=== PATIENT | male | born 1995 | race Caucasian/White ===

== ENCOUNTER 2018-07-20 17:50 | Emergency (ER) | payer OTHER ==
[2018-07-20] MEDS: ALBUTEROL SULFATE 2.5 MG/0.5 ML INH NEB SOLN INH (18:35)
[2018-07-20] MEDS: DOXYCYCLINE HYCLATE 100 MG TAB PO (19:15)
[2018-07-20] MEDS: BENZONATATE 100 MG CAP PO (19:15)
[2018-07-20] MEDS: guaiFENesin ER 600 MG TAB PO (19:15)
== END 2018-07-20 19:26 | disposition home or self-care (01) ==
LOC: M ED 17:50
DX: J20.9 Acute bronchitis, unspecified (principal); J98.01 Acute bronchospasm; J45.909 Unspecified asthma, uncomplicated; Z72.0 Tobacco use; Z79.899 Other long term (current) drug therapy
CPT/HCPCS: 71046

== ENCOUNTER 2018-07-22 16:54 | Emergency (ER) | payer OTHER | END 2018-07-22 17:36 | disposition home or self-care (01) | LOC: M ED 16:54 | DX: K08.89 Other specified disorders of teeth and supporting structures (principal); K08.409 Partial loss of teeth, unspecified cause, unspecified class; Z98.890 Other specified postprocedural states; Z79.899 Other long term (current) drug therapy | CPT/HCPCS: 99282 ==

== ENCOUNTER 2018-07-30 11:02 | Emergency (ER) | payer OTHER ==
[2018-07-30] MEDS: NORCO, ANEXSIA 5/325MG TABLET (HYDROcodone/ACETAMINOPHEN) PO (12:45)
== END 2018-07-30 15:15 | disposition home or self-care (01) ==
LOC: M ED 11:02
DX: M54.9 Dorsalgia, unspecified (principal); V43.52XA Car driver injured in collision with other type car in traffic accident, initial encounter; J45.909 Unspecified asthma, uncomplicated; K44.9 Diaphragmatic hernia without obstruction or gangrene; K25.9 Gastric ulcer, unspecified as acute or chronic, without hemorrhage or perforation; F17.210 Nicotine dependence, cigarettes, uncomplicated; Z79.2 Long term (current) use of antibiotics
CPT/HCPCS: 72128

== ENCOUNTER 2018-10-11 11:54 | Emergency (ER) | payer OTHER | END 2018-10-11 13:02 | disposition left against medical advice (07) | LOC: M ED 11:54 | DX: Z53.29 Procedure and treatment not carried out because of patient's decision for other reasons (principal); Z53.21 Procedure and treatment not carried out due to patient leaving prior to being seen by health care provider (principal) ==

== ENCOUNTER 2018-12-22 10:34 | Emergency (ER) | payer OTHER ==
[~2018-12-22] VITALS: Ht 172.7 cm; Wt 72.7 kg
[~2018-12-22 10:34] MED LIST: ACET1TAB55 PO; BENZ200C70 PO; CYCL5TAB PO; DOXY100C37 PO; MOBI4TAB PO; MUCI600T37 PO; VENTAER INH
[2018-12-22] MEDS ORDERED: NORCO, ANEXSIA 5/325MG TABLET (HYDROcodone/ACETAMINOPHEN) PO ONE (11:30)
--- NOTE | 2018-12-22 11:34 | REP ---
CT HEAD WITHOUT CONTRAST: HISTORY: Headache. There is no intraparenchymal hemorrhage, mass, or midline shift. The ventricular system is normal in appearance. There is no extracerebral collection. There is no fracture. The visualized sinuses are clear. IMPRESSION: There is no intracranial lesion. Electronically Signed by Julien Hays MD 12/22/2018 11:45 A
--- NOTE | 2018-12-22 11:35 | REP ---
MAXILLOFACIAL CT WITHOUT CONTRAST: HISTORY: Injury. Minimal mucosal thickening is present in the left maxillary sinus. A retention cyst is present in the right maxillary sinus. The remaining sinuses are clear. The ostiomeatal units are patent. The middle and inferior nasal turbinates are partially paradoxical. The nasal septum is midline. The cribriform plate , medial simmons of the orbits and optic canals are intact. The carotid canals form a segment of the posterolateral simmons of the sphenoid sinus. The sphenoid septum inserts into the left internal carotid canal wall. There is no fracture. IMPRESSION: 1. Sinus mucosal thickening as described above. 2. Right maxillary sinus retention cysts. Electronically Signed by Julien Hays MD 12/22/2018 11:46 A
[2018-12-22 11:39] VITALS: BP 154/80
[2018-12-22] MEDS ORDERED: ONDA4TAB6 PO (11:52)
== END 2018-12-22 12:06 | disposition home or self-care (01) ==
LOC: M ED 10:34
DX: S00.83XA Contusion of other part of head, initial encounter (principal); Y04.0XXA Assault by unarmed brawl or fight, initial encounter; Y07.9 Unspecified perpetrator of maltreatment and neglect; Y92.009 Unspecified place in unspecified non-institutional (private) residence as the place of occurrence of the external cause; Y93.89 Activity, other specified; J34.1 Cyst and mucocele of nose and nasal sinus; J45.909 Unspecified asthma, uncomplicated; F17.200 Nicotine dependence, unspecified, uncomplicated

== ENCOUNTER 2019-02-02 03:30 | Emergency (ER) | payer OTHER ==
[~2019-02-02] VITALS: Ht 172.7 cm; Wt 72.7 kg
[~2019-02-02 03:30] MED LIST changes: +ONDA4TAB6 PO
[2019-02-02] MEDS ORDERED: VENTAER (03:35)
[2019-02-02 04:04] VITALS: BP 143/77
[2019-02-02 04:29] LABS: INFLUENZA A AMPLIFICATION NEGATIVE (NEGATIVE); INFLUENZA B AMPLIFICATION NEGATIVE (NEGATIVE)
[2019-02-02] MEDS ORDERED: AUGMENTIN 875 MG TAB PO ONE (05:00)
[2019-02-02] MEDS ORDERED: methylPREDNISolone INJ 125 MG/2 ML VIAL (J2930) IM ONE (05:00)
[2019-02-02] MEDS ORDERED: PRED20TA PO (05:04)
[2019-02-02] MEDS ORDERED: AUGM500T34 PO (05:04)
--- NOTE | 2019-02-02 07:18 | REP ---
Clinical: Shortness of breath . Comparison: 07/20/2018 . Technique: PA and lateral. Findings: The mediastinum and cardiac silhouette are normal. The lung alexander are clear and without acute consolidation, effusion, or pneumothorax. The skeletal structures are intact and normal. Impression: 1. No acute cardiopulmonary process. Electronically Signed by Ankit Estrada MD 02/02/2019 07:09 A
== END 2019-02-02 05:07 | disposition home or self-care (01) ==
LOC: M ED 03:30
DX: J02.9 Acute pharyngitis, unspecified (principal); J45.909 Unspecified asthma, uncomplicated; F17.200 Nicotine dependence, unspecified, uncomplicated; Z88.8 Allergy status to other drugs, medicaments and biological substances
CPT/HCPCS: 71046; 87502; 87880; 96372; 99284; J2930

== ENCOUNTER 2019-04-22 05:32 | Emergency (ER) | payer OTHER, SELFPAY ==
[~2019-04-22] VITALS: Ht 172.7 cm; Wt 72.7 kg
[~2019-04-22 05:32] MED LIST changes: +AUGM500T34 PO; +PRED20TA PO; +VENTAER
[2019-04-22 05:42] VITALS: BP 168/74
[2019-04-22] MEDS ORDERED: PRED20TA PO (05:47)
[2019-04-22] MEDS ORDERED: predniSONE 20 MG TAB As Ordered ONE (05:50)
[2019-04-22] MEDS ORDERED: predniSONE 20 MG TAB PO ONE (06:00)
== END 2019-04-22 06:02 | disposition home or self-care (01) ==
LOC: M ED 05:32
DX: J45.909 Unspecified asthma, uncomplicated (principal); K21.9 Gastro-esophageal reflux disease without esophagitis; F17.210 Nicotine dependence, cigarettes, uncomplicated

== ENCOUNTER 2019-06-23 18:09 | Emergency (ER) | payer SELFPAY ==
[~2019-06-23] VITALS: Ht 172.7 cm; Wt 62.3 kg
[2019-06-23 18:23] VITALS: BP 126/63
[2019-06-23] MEDS ORDERED: NS 1,000 ML IV ONE (18:45)
--- NOTE | 2019-06-24 20:30 | ECGEPIP ---
[facility] - ED Test Date: 2019-06-23 Pat Name: TETO MCGEE Department: Room: - Gender: Male Program Director Substance Abuse: travis : 1995 Requested By: PARAG Richards Order Number: [id number] Reading MD: Jese Garza Measurements Intervals [place] Rate: 88 P: 65 CA: 150 QRS: 57 QRSD: 102 T: 38 QT: 341 QTc: 415 Interpretive Statements SINUS RHYTHM POSSIBLE LEFT ATRIAL ENLARGEMENT MODERATE INTRAVENTRICULAR CONDUCTION DELAY NO PRIORS FOR COMPARISON Electronically Signed on 06-24-2019 20:30:18 EDT by Jese Garza
== END 2019-06-23 20:14 | disposition left against medical advice (07) ==
LOC: EDBD 18:09 → M ED 18:09
DX: R07.9 Chest pain, unspecified (principal); Z53.21 Procedure and treatment not carried out due to patient leaving prior to being seen by health care provider

== ENCOUNTER 2019-08-22 21:54 | Emergency (ER) | payer SELFPAY ==
[~2019-08-22] VITALS: Ht 172.7 cm; Wt 77.3 kg
[2019-08-22 21:55] VITALS: BP 134/84
[2019-08-22] MEDS ORDERED: AUGMENTIN 875 MG TAB PO ONE (22:15)
[2019-08-22] MEDS ORDERED: BENZOCAINE 20% GEL 9GM TUBE (ANBESOL MAX STRENGTH) TOP ONE (22:30)
[2019-08-22] MEDS ORDERED: LIDOCAINE 2% W/ EPINEPHRINE 1.7 ML DENTAL INJ SM ONE (22:30)
[2019-08-22] MEDS ORDERED: AUGM875T28 PO (22:46)
--- NOTE | 2019-08-23 10:09 | REP ---
LEFT WRIST, FOUR VIEWS: There is no evidence of an acute fracture, dislocation or intrinsic bone disease. IMPRESSION: No fracture or dislocation. Electronically Signed by Canelo Alvarez MD 08/23/2019 05:59 P
== END 2019-08-22 23:12 | disposition home or self-care (01) ==
LOC: M ED 21:54
DX: K04.7 Periapical abscess without sinus (principal); S60.212A Contusion of left wrist, initial encounter; W22.8XXA Striking against or struck by other objects, initial encounter; Y92.89 Other specified places as the place of occurrence of the external cause; Y99.0 Civilian activity done for income or pay; F17.210 Nicotine dependence, cigarettes, uncomplicated

== ENCOUNTER 2020-07-16 18:15 | Emergency (ER) | payer MEDICAID, SELFPAY ==
[~2020-07-16 18:15] MED LIST changes: +AUGM875T28 PO
== END 2020-07-16 20:15 | disposition left against medical advice (07) ==
LOC: M ED 18:15
DX: Z53.21 Procedure and treatment not carried out due to patient leaving prior to being seen by health care provider (principal)

== ENCOUNTER 2020-08-03 16:10 | Emergency (ER) | payer MEDICAID, SELFPAY ==
[~2020-08-03] VITALS: Ht 172.7 cm; Wt 73.7 kg
[2020-08-03 16:10] VITALS: BP 142/82
[2020-08-03] MEDS ORDERED: ACETAMINOPHEN 500 MG TAB PO ONE (16:45)
--- NOTE | 2020-08-03 17:14 | REPVR ---
PROCEDURE INFORMATION: Exam: XR Right Wrist Exam date and time: 08/03/2020 4:35 PM Age: 24 years old Clinical indication: Pain; Wrist; Right; Additional info: Punched wall TECHNIQUE: Imaging protocol: XR Right wrist. Views: 3 or more views. COMPARISON: CR Wrist, complete 08/22/2019 10:17 PM FINDINGS: Bones/joints: Normal. Soft tissues: Normal. IMPRESSION: No acute findings. Electronically signed by: Velasquez Ott On 08/03/2020 17:13:42 PM
--- NOTE | 2020-08-03 17:15 | REPVR ---
PROCEDURE INFORMATION: Exam: XR Right Hand Exam date and time: 08/03/2020 4:35 PM Age: 24 years old Clinical indication: Pain; Hand; Right; Additional info: Punched wall TECHNIQUE: Imaging protocol: XR Right hand. Views: 3 or more views. COMPARISON: CR Wrist, complete 08/22/2019 10:17 PM FINDINGS: Bones/joints: Normal. Soft tissues: Normal. IMPRESSION: No acute findings. Electronically signed by: Velasquez Ott On 08/03/2020 17:14:44 PM
== END 2020-08-03 17:43 | disposition home or self-care (01) ==
LOC: M ED 16:10
DX: S69.91XA Unspecified injury of right wrist, hand and finger(s), initial encounter (principal); W22.09XA Striking against other stationary object, initial encounter; Y92.009 Unspecified place in unspecified non-institutional (private) residence as the place of occurrence of the external cause; Y93.89 Activity, other specified; Y99.8 Other external cause status; J45.909 Unspecified asthma, uncomplicated; Z87.828 Personal history of other (healed) physical injury and trauma

== ENCOUNTER 2020-08-24 01:35 | Emergency (ER) | payer MEDICAID, SELFPAY ==
[~2020-08-24] VITALS: Ht 167.6 cm; Wt 73.0 kg
[2020-08-24] MEDS ORDERED: AMOX500C PO (01:48)
--- NOTE | 2020-08-24 02:30 | REPVR ---
PROCEDURE INFORMATION: Exam: XR Chest, 2 Views Exam date and time: 08/24/20 (2:05am) Age: 24 years old Clinical indication: Cough TECHNIQUE: Imaging protocol: XR of the chest Views: 2 views COMPARISON: Chest films of 02/02/19 FINDINGS: Lungs: Unremarkable. No consolidation. Pleural space: Unremarkable. No pleural effusions. No pneumothorax. Heart/Mediastinum: Unremarkable. No cardiomegaly. Bones/joints: Unremarkable. IMPRESSION: No acute findings. The lung alexander remain clear. Electronically signed by: Noelle Mendiola On 08/24/2020 02:30:44 AM
[2020-08-24 02:41] LABS: HEMATOCRIT 41.3 % (42.0-52.0); HEMOGLOBIN 14.2 g/dl (13.5-17.5); MEAN CORPUSCULAR HEMOGLOBIN 31.7 pg (27.0-33.0); MEAN CORPUSCULAR HGB CONC 34.4 g/dl (32.0-36.5); MEAN CORPUSCULAR VOLUME 92.2 fl (80.0-96.0); PLATELET COUNT, AUTOMATED 312 10^3/uL (150-450); RED BLOOD COUNT 4.48 10^6/uL (4.30-6.10); WHITE BLOOD COUNT 9.5 10^3/uL (4.0-10.0)
[2020-08-24] MEDS ORDERED: AZIT-12 PO (02:51)
[2020-08-24] MEDS ORDERED: PROAAER10 INH (02:51)
[2020-08-24 03:00] VITALS: BP 104/58
[2020-08-24] MEDS ORDERED: AZITHROMYCIN 250MG TABLET PO ONE (03:00)
== END 2020-08-24 03:11 | disposition home or self-care (01) ==
LOC: M ED 01:35
DX: J20.9 Acute bronchitis, unspecified (principal); R55 Syncope and collapse; J45.909 Unspecified asthma, uncomplicated; F17.200 Nicotine dependence, unspecified, uncomplicated; Z87.828 Personal history of other (healed) physical injury and trauma; Z79.51 Long term (current) use of inhaled steroids

== ENCOUNTER 2021-09-24 22:15 | Emergency (ER) | payer MEDICAID ==
[~2021-09-24] VITALS: Ht 172.7 cm; Wt 72.3 kg
[~2021-09-24 22:15] MED LIST changes: +AMOX500C PO; +AZIT-12 PO; +DOXY-443 PO; -DOXY100C37 PO; +PROAAER10 INH
[2021-09-24 22:16] VITALS: BP 156/87
--- OUTSIDE RECORDS SUMMARY | 2021-09-24 22:27 | CCD ---
Author Author [facility] Organization [facility] Address Unknown Phone Unavailable Care Team Providers Care Weight Loss Physician Name Role Phone Darek Colemanra REPORT MANAGER REPORT MANAGER Unavailable Unavailable Jared, A Danna REPORT MANAGER Unavailable Unavailable Jared, A Danna REPORT MANAGER Unavailable Unavailable Jared, A Danna REPORT MANAGER Unavailable Unavailable Jared, A Danna REPORT MANAGER Unavailable Unavailable Jared, A Danna REPORT MANAGER Unavailable Unavailable Jared, A Danna REPORT MANAGER Unavailable Unavailable Jared, A Danna REPORT MANAGER Unavailable Unavailable Jared, A Danna REPORT MANAGER Unavailable Unavailable Jared, A Danna REPORT MANAGER Unavailable Unavailable Jared, A Danna REPORT MANAGER Unavailable Unavailable Jared, A Danna REPORT MANAGER Unavailable Unavailable Jared, A Danna REPORT MANAGER Unavailable Unavailable Jared, A Danna REPORT MANAGER Unavailable Unavailable Jared, A Danna REPORT MANAGER Unavailable Unavailable Jared, A Danna REPORT MANAGER Unavailable Unavailable Jared, A Danna REPORT MANAGER Unavailable Unavailable Jared, A Danna REPORT MANAGER Unavailable Unavailable Jared, A Danna REPORT MANAGER Unavailable Unavailable Jared, A Danna REPORT MANAGER Unavailable Unavailable Jared, A Danna REPORT MANAGER Unavailable Unavailable Jared, A Danna REPORT MANAGER Unavailable Unavailable Jared, A Danna REPORT MANAGER Unavailable Unavailable Jared, A Danna REPORT MANAGER Unavailable Unavailable Jared, A Danna REPORT MANAGER Unavailable Unavailable Jared, A Danna REPORT MANAGER Unavailable Unavailable Jared, A Danna REPORT MANAGER Unavailable Unavailable Jared, A Danna REPORT MANAGER Unavailable Unavailable Jared, A Danna REPORT MANAGER Unavailable Unavailable Jared, A Danna REPORT MANAGER Unavailable Unavailable Jared, A Danna REPORT MANAGER Unavailable Unavailable Jared, A Danna REPORT MANAGER Unavailable Unavailable Re-disclosure Warning The records that you are about to access may contain information from federally-assisted alcohol or drug abuse programs. If such information is present, then the following federally mandated warning applies: This information has been disclosed to you from records protected by federal confidentiality rules (42 CFR part 2). The federal rules prohibit you from making any further disclosure of this information unless further disclosure is expressly permitted by the written consent of the person to whom it pertains or as otherwise permitted by 42 CFR part 2. A general authorization for the release of medical or other information is NOT sufficient for this purpose. The Federal rules restrict any use of the information to criminally investigate or prosecute any alcohol or drug abuse patient.The records that you are about to access may contain highly sensitive health information, the redisclosure of which is protected by Article 27-F of the [place] State Public Health law. If you continue you may have access to information: Regarding HIV / AIDS; Provided by facilities licensed or operated by the [facility] Office of Mental Health; or Provided by the [facility] Office for People With Developmental Disabilities. If such information is present, then the following [facility] mandated warning applies: This information has been disclosed to you from confidential records which are protected by state law. State law prohibits you from making any further disclosure of this information without the specific written consent of the person to whom it pertains, or as otherwise permitted by law. Any unauthorized further disclosure in violation of state law may result in a fine or alf sentence or both. A general authorization for the release of medical or other information is NOT sufficient authorization for further disc losure. Family History Family Member Name Family Member Gender Family Member Status Date o f Status Description Data Source(s) Unknown Unknown Problem MEDENT ([facility], ) Encounters Encounter Providers Location Date Indications Data Source(s ) Outpatient Attender: Danna Coleman [facility] 09/01/2020 11:2 6:01 AM EDT [facility] Outpatient Attender: ZACHARY Jared [facility] 08/22/2020 10:26:01 A M EDT [facility] Outpatient Attender: ZACHARY Coleman [facility] 08/22/2020 10:24:01 A M EDT [facility] Outpatient Attender: REPORT MANAGER Jared [facility] 08/22/2020 10:21:03 A M EDT [facility] Outpatient Attender: ZACHARY Jared [facility] 08/20/2020 12:02:22 A M EDT [facility] Outpatient Attender: ZACHARY Coleman [facility] 08/19/2020 01:02:00 P M EDT [facility] Outpatient Attender: ZACHARY Coleman [facility] 08/19/2020 12:49:00 P M EDT [facility] Outpatient Attender: ZACHARY Coleman [facility] 08/19/2020 12:40:00 P M EDT [facility] Outpatient Attender: REPORT MANAGER Jared [facility] 08/19/2020 11:20:00 A M EDT [facility] Outpatient Attender: ZACHARY Coleman [facility] 08/04/2020 12:02:22 A M EDT [facility] Medications No Information Insurance Providers Payer name Policy type / Coverage type Policy ID Covered democrat ID Covered democrat's relationship to culp Policy Culp Plan Information [place] [id number] SP [id number] B EMEDNY [id number] SP [id number] SELF PAY ONLY [id number] SP [id number] Self Pay P [id number] S [id number] Self Pay P UNAVAILABLE S UNAVAILA BLE UN COMMUNITY PLAN [facility] [id number] SP [id number] [facility](MCAID) O [id number] S [id number] SPECTRUM [id number] SP [id number] [facility] CLAIMS [id number] SP [id number] SPECTRUM [id number] SP [id number] SPECTRUM O [id number] S [id number] [facility] Health Maintenance Organization (HMO) [id number] Self [id number] UN COMMUNITY PLAN [facility] [id number] SP [id number] UNITED HEALTHCARE MEDICAID MCD HMO [id number] S [id number] SELF PAY SP [id number] S [id number] [employer] MEDICAID MCD HMO [id number] S [id number] SELF PAY SP UNAVAILABLE S UNAVAILA BLE Problems, Conditions, and Diagnoses Code Display Name Description Problem Type Effective Dates Data Source(s) 525.10 Teeth extraction Teeth extraction 08/19/2020 01 :01:02 PM EDT [facility] Surgeries/Procedures No Information Results ID Date Data Source [id number] 08/19/2020 12:25:00 PM EDT [facility] Current Problems: Teeth extraction (ICD- 525.10) (UVE29-Y71.499)DENTAL CARIES EXTENDING INTO PULP (ICD-521.03) (CPS23-Y11.63)Problem list reviewed during this update.Current Medications: AMOXICILLIN 500 MG CAPS (AMOXICILLIN) 1 tablet by mouth every 8 hours until gone; Route: ORALMedication list reviewed during this update.No known medications.Allergy list reviewed during this update.No known allergies. 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 I am concern about my gums that are white:. O: RMHx (-) HPI:years PL: 10 BP: 140/112 P:87. ARANA taken. # 5, 17,# 31 broken and decayed. # 19 has PAP. Positive palpation and percusssion. Noted heavy plaqueA: DDS recomends extraction of #5 #17 #19 #31. DX; necrotic # 19 and decayed # 5,17 and 31. P: Referral for OS for ext of #5 #17 #19 #31Recommend brushing and flossing and New pt. exam. Pt referred to insurance office supervisor to get insurance. E-scribe Amoxicillin 500mg q8h until gone dispense 21 tabs zero refills Pharmacy: [facility]. Informed Pt about new pain management policy of the clinic regarding about narcotic,told pt to alternate Ibuprophen 600- 800mg and tylenol 500mg every 4 to 6 hrs for pain when needed. Assisted By:SANTY NV: Almaz Silva DDS by baylee (08/19/2020 12:59 PM): Tooth Notes and Watches:- Tooth 17 Note: Referred to Almaz Buck DDS by victor hugo (09/03/2019 11:55 AM): - Tooth 19 Note: Referred to Almaz Buck DDS by victor hugo (09/03/2019 11:56 AM): Assessment & Plan Problems:Added: Teeth extraction (ICD-525.10) (SAY90-H02.499)Medicatio ns:AMOXICILLIN 500 MG CAPSMedication Changes:New Prescription:AMOXICILLIN 500 MG CAPS-1 tablet by mouth every 8 hours until gone Qty: 21[Capsule] Refills: 0 Method: ElectronicAllergies:No Known Allergies (updated 08/19/2020) Orders:Oral Surgery Referral [[id number]] Name Value Range Interpretation Code Description Data Michelle rce(s) Supporting Document(s) Procedure Social History No Information
--- OUTSIDE RECORDS SUMMARY | 2021-09-24 23:13 | CCD ---
Author Author [facility] Organization [facility] Address Unknown Phone Unavailable Care Team Providers Care Silk Opener Name Role Phone Darek Colemanra BUFFING MACHINE TENDER BUFFING MACHINE TENDER Unavailable Unavailable Jared, A Danna BUFFING MACHINE TENDER Unavailable Unavailable Jared, A Danna BUFFING MACHINE TENDER Unavailable Unavailable Jared, A Danna BUFFING MACHINE TENDER Unavailable Unavailable Jared, A Danna BUFFING MACHINE TENDER Unavailable Unavailable Jared, A Danna BUFFING MACHINE TENDER Unavailable Unavailable Jared, A Danna BUFFING MACHINE TENDER Unavailable Unavailable Jared, A Danna BUFFING MACHINE TENDER Unavailable Unavailable Jared, A Danna BUFFING MACHINE TENDER Unavailable Unavailable Jared, A Danna BUFFING MACHINE TENDER Unavailable Unavailable Jared, A Danna BUFFING MACHINE TENDER Unavailable Unavailable Jared, A Danna BUFFING MACHINE TENDER Unavailable Unavailable Jared, A Danna BUFFING MACHINE TENDER Unavailable Unavailable Jared, A Danna BUFFING MACHINE TENDER Unavailable Unavailable Jared, A Danna BUFFING MACHINE TENDER Unavailable Unavailable Jared, A Danna BUFFING MACHINE TENDER Unavailable Unavailable Jared, A Danna BUFFING MACHINE TENDER Unavailable Unavailable Jared, A Danna BUFFING MACHINE TENDER Unavailable Unavailable Jared, A Danna BUFFING MACHINE TENDER Unavailable Unavailable Jared, A Danna BUFFING MACHINE TENDER Unavailable Unavailable Jared, A Danna BUFFING MACHINE TENDER Unavailable Unavailable Jared, A Danna BUFFING MACHINE TENDER Unavailable Unavailable Jared, A Danna BUFFING MACHINE TENDER Unavailable Unavailable Jared, A Danna BUFFING MACHINE TENDER Unavailable Unavailable Jared, A Danna BUFFING MACHINE TENDER Unavailable Unavailable Jared, A Danna BUFFING MACHINE TENDER Unavailable Unavailable Jared, A Danna BUFFING MACHINE TENDER Unavailable Unavailable Jared, A Danna BUFFING MACHINE TENDER Unavailable Unavailable Jared, A Danna BUFFING MACHINE TENDER Unavailable Unavailable Jared, A Danna BUFFING MACHINE TENDER Unavailable Unavailable Jared, A Danna BUFFING MACHINE TENDER Unavailable Unavailable Jared, A Danna BUFFING MACHINE TENDER Unavailable Unavailable Re-disclosure Warning The records that [...] is protected by Article 27-F of the [place] State Public Health law. If you continue you may have access to information: Regarding HIV / AIDS; Provided by facilities licensed or operated by the [facility] Office of Mental Health; or Provided by the [facility] Office for People With Developmental Disabilities. If such information is present, then the following [facility] mandated warning applies: This information has [...] law may result in a fine or snf sentence or both. A general authorization for the release of medical or other information is NOT sufficient authorization for further disc losure. Family History Family Member Name Family Member Gender Family Member Status Date o f Status Description Data Source(s) Unknown Unknown Problem MEDENT ([facility], ) Encounters Encounter Providers Location Date Indications Data Source(s ) Outpatient Attender: Danna oCleman [facility] 09/01/2020 11:2 6:01 AM EDT [facility] Outpatient Attender: ZACHARY Jared [facility] 08/22/2020 10:26:01 A M EDT [facility] Outpatient Attender: ZACHARY Coleman [facility] 08/22/2020 10:24:01 A M EDT [facility] Outpatient Attender: BUFFING MACHINE TENDER Jared [facility] 08/22/2020 10:21:03 A M EDT [facility] Outpatient Attender: ZACHARY Jared [facility] 08/20/2020 12:02:22 A M EDT [facility] Outpatient Attender: ZACHARY Coleman [facility] 08/19/2020 01:02:00 P M EDT [facility] Outpatient Attender: ZACHARY Coleman [facility] 08/19/2020 12:49:00 P M EDT [facility] Outpatient Attender: ZACHARY Coleman [facility] 08/19/2020 12:40:00 P M EDT [facility] Outpatient Attender: BUFFING MACHINE TENDER Jared [facility] 08/19/2020 11:20:00 A M EDT [facility] Outpatient Attender: ZACHARY Coleman [facility] 08/04/2020 12:02:22 A M EDT [facility] Medications No Information Insurance Providers Payer name Policy type / Coverage type Policy ID Covered republican ID Covered republican's relationship to culp Policy Culp Plan Information [place] [id number] SP [id number] B EMED[place] [id number] SP [id number] SELF PAY ONLY [id number] SP [id number] Self Pay P [id number] S [id number] Self Pay P UNAVAILABLE S UNAVAILA BLE UN COMMUNITY PLAN [facility] [id number] SP [id number] [facility](MCAID) O [id number] S [id number] SPECTRUM [id number] SP [id number] [facility] CLAIMS [id number] SP [id number] SPECTRUM [id number] SP [id number] SPECTRUM O [id number] S [id number] [facility] Health Maintenance Organization (HMO) [id number] Self [id number] [facility] [id number] SP [id number] [employer] MEDICAID MCD HMO [id number] S [id number] SELF PAY SP [id number] S [id number] [employer] MEDICAID MCD HMO [id number] S [id number] SELF PAY SP UNAVAILABLE S UNAVAILA BLE Problems, Conditions, and Diagnoses Code Display Name Description Problem Type Effective Dates Data Source(s) 525.10 Teeth extraction Teeth extraction 08/19/2020 01 :01:02 PM EDT [facility] Surgeries/Procedures No Information Results ID Date Data Source [id number] 08/19/2020 12:25:00 PM EDT [facility] Current Problems: Teeth extraction (ICD- 525.10) (HUZ08-W14.499)DENTAL CARIES EXTENDING INTO PULP (ICD-521.03) (SDM98-G59.63)Problem list reviewed during this update.Current Medications: AMOXICILLIN [...] focused on Tooth # 17 (Performed by Almaz Azul DDS) Treatments:Type - CDT Code - [...] and New pt. exam. Pt referred to health insurance assessor to get insurance. E-scribe Amoxicillin 500mg q8h until gone dispense 21 tabs zero refills Pharmacy: [facility]. Informed Pt about new pain management policy [...] Assessment & Plan Problems:Added: Teeth extraction (ICD-525.10) (JIQ46-P01.499)Medicatio ns:AMOXICILLIN 500 MG CAPSMedication Changes:New Prescription:AMOXICILLIN 500 MG CAPS-1 tablet by mouth every 8 hours until gone Qty: 21[Capsule] Refills: 0 Method: ElectronicAllergies:No Known Allergies (updated 08/19/2020) Orders:Oral Surgery Referral [[id number]] Name Value Range Interpretation Code Description Data Michelle rce(s) Supporting Document(s) Procedure Social History No Information
== END 2021-09-24 23:56 | disposition left against medical advice (07) ==
LOC: M ED 22:15
DX: Z53.29 Procedure and treatment not carried out because of patient's decision for other reasons (principal)